=== PATIENT | female | born 1975 | race Caucasian/White ===

== ENCOUNTER 2018-05-15 09:33 | Observation (INO) | payer BC, OTHER ==
[~2018-05-15] VITALS: Ht 165.1 cm; Wt 81.2 kg
--- NOTE | 2018-05-15 12:43 | EN ---
Date/Time of Note Date/Time of Note DATE: 05/15/18 TIME: 12:43 ER Progress Note Case was discussed in detail with the advanced practice provider. Patient was seen independently Diagnostic assessment reviewed. I agree with the assessment and care plan as discussed. SAMANTHA GEORGE May 15, 2018 12:43
--- NOTE | 2018-05-15 15:27 | ERD ---
ER Documentation Chief Complaint Chief Complaint abdominal pain - LMP 02/24/18 HPI 42-year-old female presenting with right-sided abdominal pain. In September 2017 patient had a hemicolectomy after an obstruction. Patient has had no problems since. Patient has developed right-sided abdominal pain with distention times 2 days. Patient is currently 11 weeks with twins. Patient states her last bowel movement was 2 days ago and she is passing gas however no bowel movement. Patient states the pain is worse when she is laying on the right side and is alleviated when she is laying on her left side. She describes as bad cr amping type pain. She denies any vomiting but feels nauseous. Patient is unsure if the nausea is due to the . LNMP February 25. A1. Being followed by Dr. Simon. Denies medical problems. NKDA. Surgical history is tummy tack, breast reduction and hemicolectomy. Social history denies ROS All systems reviewed and are negative except as per history of present illness. Medications Home Meds No Active Prescriptions or Reported Meds Allergies Allergies: Coded Allergies: No Known Allergy (Unverified , 08/22/12) PMhx/Soc History of Surgery: Yes (TUMMY TUCK 2012, BREAST REDUCTION,right hemicolectomy- 09/2017) Anesthesia Reaction: No Hx Neurological Disorder: No Hx Respiratory Disorders: No Hx Cardiac Disorders: No Hx Psychiatric Problems: No Hx Miscellaneous Medical Probl: No Hx Alcohol Use: Yes (OCCASSIONALLY) Hx Substance Use: No Hx Tobacco Use: No Smoking Status: Never smoker FmHx Family History: No diabetes, No coronary disease, No other Physical Exam Vitals Vital Signs Date Temp Pulse Resp B/P (MAP) Pulse Ox O2 O2 Flow FiO2 Time Delivery Rate 05/15/18 97.6 99 19 117/77 98 09:43 (90) Physical Exam GENERAL: The patient is well-appearing, well-nourished, in no acute distress HEENT: Atraumatic. Conjunctivae are pink. Pupils equal, round, and reactive to light. There is no scleral icterus. Tympanic membranes clear bilaterally. Oropharynx clear. No nystagmus or photophobia. CHEST: Clear to auscultation bilaterally. There are no rales, wheezes or rhonchi. HEART: Regular rate and rhythm. No murmurs, clicks, rubs or gallops. No S3 or S4. ABDOMEN: Normal active bowel sounds. Patient has distention and tenderness to palpation over the right abdomen. No rebound tenderness. Result Diagram: 05/15/18 1025 05/15/18 1025 Results 24 hrs Laboratory Tests Test 05/15/18 10:25 05/15/18 11:02 White Blood Count 7.3 10^3/ul Red Blood Count 4.59 10^6/ul Hemoglobin 13.3 g/dl Hematocrit 39.3 % Mean Corpuscular Volume 85.6 fl Mean Corpuscular Hemoglobin 29.0 pg Mean Corpuscular Hemoglobin Concent 33.8 g/dl Red Cell Distribution Width 13.2 % Platelet Count 312 10^3/UL Mean Platelet Volume 9.7 fl Immature Granulocytes % 0.800 % Neutrophils % 72.2 % Lymphocytes % 19.0 % Monocytes % 6.9 % Eosinophils % 0.7 % Basophils % 0.4 % Nucleated Red Blood Cells % 0.0 /100WBC Immature Granulocytes # 0.060 10^3/ul Neutrophils # 5.2 10^3/ul Lymphocytes # 1.4 10^3/ul Monocytes # 0.5 10^3/ul Eosinophils # 0.1 10^3/ul Basophils # 0.0 10^3/ul Nucleated Red Blood Cells # 0.0 10^3/ul Urine Color STUART Urine Clarity SLIGHTLY CLOUDY Urine pH 5.0 Urine Specific [place] 1.032 Urine Ketones NEGATIVE mg/dL Urine Nitrite NEGATIVE mg/dL Urine Bilirubin 1+ mg/dL Urine Urobilinogen 2+ mg/dL Urine Leukocyte Esterase NEGATIVE Venkatesh/ul Urine Microscopic RBC 0 /HPF Urine Microscopic WBC 1 /HPF Urine Squamous Epithelial Cells MODERATE /HPF Urine Bacteria FEW /HPF Urine Mucus MODERATE /HPF Urine Hemoglobin NEGATIVE mg/dL Urine Glucose NEGATIVE mg/dL Urine Total Protein 1+ mg/dl Sodium Level 141 mmol/L Potassium Level 4.7 mmol/L Chloride Level 100 mmol/L Carbon Dioxide Level 28 mmol/L Anion Gap 13 Blood Urea Nitrogen 7 mg/dl Creatinine 0.51 mg/dl Est Glomerular Filtrat Rate mL/min > 60 mL/min Glucose Level 88 mg/dl Calcium Level 10.0 mg/dl Total Bilirubin 0.8 mg/dl Direct Bilirubin 0.00 mg/dl Indirect Bilirubin 0.8 mg/dl Aspartate Amino Transf (AST/SGOT) 43 IU/L Alanine Aminotransferase (ALT/SGPT) 95 IU/L Alkaline Phosphatase 122 IU/L Total Protein 7.5 g/dl Albumin 4.2 g/dl Globulin 3.30 g/dl Albumin/Globulin Ratio 1.27 Lipase 48 U/L Beta HCG, Quantitative 535816.0 mIU/ml Procedures/MDM DIAGNOSTIC IMAGING REPORT Patient: ANJALI MINOR : 1975 Age: 42 Sex: F MR #: [id number] DOS: 05/15/18 1032 Ordering MD: MOLLY LYNN PA-C Location: [facility] Room/Bed: PROCEDURE: US OB. CLINICAL INDICATION: Abdominal pain TECHNIQUE: Transabdominal views of the pelvis are available for review. COMPARISON: No prior studies are available for comparison. FINDINGS: There is a twin intrauterine gestation. Twin A Bloxom-rump length measuring 5.2 cm, corresponding to a gestational age of 11 weeks and 6 days. The heart rate is noted at 176 bpm. Twin B Bloxom-rump length measuring 4.8 cm, corresponding to a gestational age of 11 weeks and 4 days. The heart rate is noted at 191 bpm. The ovaries are not visualized. There is no free fluid. The cervix measures 3 cm in length. RPTAT: AA IMPRESSION: Twin live intrauterine with an estimated gestational age of 11 weeks and 4-6 days, based on ultrasound measurements. Ovaries not visualized. DIAGNOSTIC IMAGING REPORT Patient: ANJALI MINOR : 1975 Age: 42 Sex: F MR #: [id number] DOS: 05/15/18 1012 Ordering MD: MOLLY LYNN PA-C Location: [facility] Room/Bed: AMENDMENT: 05/15/2018 2:38:05 PM Tom Welch M.d Limited evaluation of the appendix on abdominal MRI. Appendix is not visualized. No evidence of inflammatory fluid or stranding in the right lower quadrant abdomen. PROCEDURE: MR Abdomen without contrast CLINICAL INDICATION: Abdominal pain. History of colon obstruction and prior surgery. , 11 weeks. TECHNIQUE: MRI abdomen without contrast was performed on a high-resolution high field scanner, with axial and coronal T2-weighted sequences, axial in and out of phase T1 weighted sequences, and axial lava T1-weighted sequence.. COMPARISON: US PELVIS 05/15/2018; CR ABDOMEN 05/03/2016; RF CR ABDOMEN 01/09/2014; CT 08/22/2012 FINDINGS: Lower thorax: Limited imaging of the lung bases demonstrates no suspicious pleural or parenchymal disease. Liver: Normal. Biliary: Gallbladder is distended. No gallbladder wall thickening. No gallstones are seen. No intrahepatic or extrahepatic biliary dilatation. Pancreas: Normal. Pancreatic duct, as visualized, is unremarkable. Spleen: Normal. Adrenal Glands: Normal. Urinary: Bilateral kidneys are unremarkable. Gastrointestinal: Stomach is grossly unremarkable. Mild prominence of the jejunum in the left abdomen is noted. There is a large amount of stool throughout the ascending and transverse colon . Lymph nodes: No enlarged abdominal lymph nodes identified. Vascular: No evidence of abdominal aortic aneurysm. Peritoneum/mesentery: No visualized free fluid. Musculoskeletal: No suspicious osseous abnormalities. Other: Partially visualized gravid uterus with twin . IMPRESSION: 1. Evaluation of bowel is limited by motion artifact and incomplete imaging of the pelvis. Distension with large amount of stool seen in the ascending and transverse colon suggestive of constipation or ileus. Colonic obstruction is not totally excluded but is less likely. 2. Short segment of mildly distended jejunal small bowel, may reflect ileus. 3. Twin partially visualized and not well evaluated. ER Course: This case was evaluated by Dr. Caldera as well as Dr. Cedeno. Even there is no clear indication if there is a current obstruction however patient does have distention patient will be admitted for observation. Patient is stable at the time of admission. I have low suspicion for sepsis. I have low suspicion for other acute abdominal emergency however patient will be monitored closely during admission. MDM: 42-year-old female presenting with abdominal distention and tenderness. Patient has a history of obstruction and will be admitted for observation due to risk of possible re-obstruction. I have low suspicion for complications secondary to . Patient is stable at the time of admission and will be admitted with the assistance of Dr. Cedeno. JOHN LYNN PA-C May 15, 2018 15:27
[2018-05-15] MEDS ORDERED: BISACODYL 10 MG SUPP PR ONE (17:30)
[2018-05-15] MEDS ORDERED: SOD CHLORIDE 0.9% 1,000 ML IV ONE (17:30)
[2018-05-15] MEDS ORDERED: MINERAL OIL 133 ML ENEMA PR ONE (17:30)
--- NOTE | 2018-05-15 17:50 | EN ---
Date/Time of Note Date/Time of Note DATE: 05/15/18 TIME: 17:39 ER Progress Note The patient was initially seen by the PA, discussed the patient with me. I did see the patient and examined the patient myself.. She has had intermittent right-sided abdominal pain for the last couple days, with constipation, denies fever, chills, neck pain, chest pain, vomiting, dysuria. She did have right hemicolectomy in September 2017 due to ?obstruction. Const: No acute distress. Head: Atraumatic. Eyes: Normal Conjunctiva. ENT: Normal External Ears, Nose and Mouth. Neck: Full range of motion. No meningismus. Resp: Clear to auscultation bilaterally. Cardio: Regular rate and rhythm. Abd: Soft, non distended, normal bowel sounds, gravid, vague right- sided abdominal tenderness, no rigidity, rebound, CVA tenderness Skin: No petechiae or rashes. Back: No midline or flank tenderness. Ext: No cyanosis, or edema. Neur: Awake and alert. No focal deficit Psych: Normal Mood and Affect. Ultrasound/abdominal MRI/labs work will review Consultation: I discussed the patient with the on-call surgeon at 5:20 pm, who was made aware of the lab, the treatment, the patient condition. He accepted the consult. I discussed the patient with the on-call burning machine operator Dr Doran at 5:30 pm, who was made aware of the lab, the treatment, the patient condition. She accepted the consult. MEDICAL MAKING DECISION: The patient is a 42-year-old female, presenting with acute onset abdominal pain of unclear etiology, probable due to constipation. She was treated with 1 L normal saline for dehydration, Dulcolax suppository and Fleet enema with good response. The differential diagnoses considered include but are not limited to constipation, adhesion, cholelithiasis, cholecystitis, choledocholithiasis, cholangitis, pancreatitis, hepatitis, gastritis, peptic ulcer disease, gastric ulcer, appendicitis, cystitis, diverticulitis, partial small bowel obstruction. Diagnostic impression: #1. Acute abdominal pain #2 Acute constipation I discussed the findings with the patient. I discussed the patient with the hospitalist Dr Beckham at 5:35 pm. who was made aware of the lab, the treatment, the patient condition. The patient is admitted to [facility] Disclaimer: Inadvertent spelling and grammatical errors are likely due to EHR/dictation software use and do not reflect on the overall quality of patient care. Also, please note that the electronic time recorded on this note does not necessarily reflect the actual time of the patient encounter. KIRSTY LEYVA MD May 15, 2018 17:50
[2018-05-15] MEDS ORDERED: ACETAMINOPHEN 325 MG TAB PO ONE (20:00)
[2018-05-15 23:53] VITALS: BP 96/56; PULSE 79; RESP 18
[2018-05-16] VITALS: BP 96/56; PULSE 70; RESP 18
[2018-05-16 00:03] VITALS: Ht 165.1 cm; Wt 81.2 kg
--- NOTE | 2018-05-16 00:05 | HP ---
Date/Time of Note Date/Time of Note DATE: 05/16/18 TIME: 00:05 Assessment/Plan VTE Prophylaxis SCD applied (from Nsg): Yes Pharmacological prophylaxis: NA/contraindicated Pharm contraindication: other (Patient was possible appendicitis and awaiting possible surgery) Lines/Catheters IV Catheter Type (from Nrsg): Saline Lock Assessment/Plan Assessment/Plan 42-year-old female who is 11 weeks with a history of hemicolectomy in [facility] in September of last year with right lower quadrant abdominal pain of 3 days duration, worrisome for appendicitis PLAN Patient's pain is localized exactly where her appendix is and she is tender. MRI of the abdomen shows distension with large amount of stool seen in the ascending and transverse colon, but no mentioning of appendicitis. Patient without nausea/vomiting and as she had bowel movements with a suppository after she came here, therefore bowel obstruction very unlikely. -keep n.p.o. with IV fluid -Awaiting surgical eval -Pain management -Bowel regimen for constipation Result Diagram: 05/15/18 1025 05/15/18 1025 Results 24hrs Laboratory Tests Test 05/15/18 10:25 05/15/18 11:02 White Blood Count 7.3 Red Blood Count 4.59 Hemoglobin 13.3 Hematocrit 39.3 Mean Corpuscular Volume 85.6 Mean Corpuscular Hemoglobin 29.0 Mean Corpuscular Hemoglobin Concent 33.8 Red Cell Distribution Width 13.2 Platelet Count 312 Mean Platelet Volume 9.7 Immature Granulocytes % 0.800 H Neutrophils % 72.2 Lymphocytes % 19.0 Monocytes % 6.9 Eosinophils % 0.7 Basophils % 0.4 Nucleated Red Blood Cells % 0.0 Immature Granulocytes # 0.060 H Neutrophils # 5.2 Lymphocytes # 1.4 Monocytes # 0.5 Eosinophils # 0.1 Basophils # 0.0 Nucleated Red Blood Cells # 0.0 Urine Color STUART Urine Clarity SLIGHTLY CLOUDY A Urine pH 5.0 Urine Specific [place] 1.032 H Urine Ketones NEGATIVE Urine Nitrite NEGATIVE Urine Bilirubin 1+ H Urine Urobilinogen 2+ H Urine Leukocyte Esterase NEGATIVE Urine Microscopic RBC 0 Urine Microscopic WBC 1 Urine Squamous Epithelial Cells MODERATE Urine Bacteria FEW A Urine Mucus MODERATE Urine Hemoglobin NEGATIVE Urine Glucose NEGATIVE Urine Total Protein 1+ H Sodium Level 141 Potassium Level 4.7 Chloride Level 100 Carbon Dioxide Level 28 Anion Gap 13 Blood Urea Nitrogen 7 Creatinine 0.51 Est Glomerular Filtrat Rate mL/min > 60 Glucose Level 88 Calcium Level 10.0 Total Bilirubin 0.8 Direct Bilirubin 0.00 Indirect Bilirubin 0.8 Aspartate Amino Transf (AST/SGOT) 43 Alanine Aminotransferase (ALT/SGPT) 95 H Alkaline Phosphatase 122 H Total Protein 7.5 Albumin 4.2 Globulin 3.30 H Albumin/Globulin Ratio 1.27 Lipase 48 Beta HCG, Quantitative 134832.0 HPI/ROS Admit Date/Time Admit Date/Time May 15, 2018 at 17:38 Hx of Present Illness This is a 42-year-old female who is 11 weeks with a history of hemicolectomy in [facility] in September of last year who presents the ER complaining of abdominal pain. Pain is been going on for the past 3 days. Abdominal pain is located in the right lower quadrant. She reported constipation, but had some bowel movement with suppository after she came here. She also reported she was having dry cough about 10 days ago. Flu was checked by her PCP and it was negative. She said she finished a one-week course of ampicillin 2 days ago. As far as her colon surgery is concerned, she said it was done because "my colon was twisted around my stomach". When patient presented to ER, vitals were stable. CBC and CMP within acceptable range. MRI of the abdomen shows the followin. Evaluation of bowel is limited by motion artifact and incomplete imaging of the pelvis. Distension with large amount of stool seen in the ascending and transverse colon suggestive of constipation or ileus. Colonic obstruction is not totally excluded but is less likely. 2. Short segment of mildly distended jejunal small bowel, may reflect ileus. 3. Twin partially visualized and not well evaluated. Obstetric ultrasound shows the following: Twin live intrauterine with an estimated gestational age of 11 weeks and 4-6 days, based on ultrasound measurements. Ovaries not visualized. PMH/Family/Social Past Medical History Medical History: other (See HPI) Coded Allergies: No Known Allergy (Unverified , 05/15/18) Past Surgical History Past Surgical Hx: other (See HPI) Family History Significant Family History: no pertinent family hx Social History Alcohol Use: none Smoking Status: Never smoker Drug Use: none Exam/Review of Systems Vital Signs Vitals Vital Signs Date Temp Pulse Resp B/P (MAP) Pulse Ox O2 O2 Flow FiO2 Time Delivery Rate 05/15/18 98.3 79 18 96/56 (69) 98 23:53 05/15/18 Room Air 22:46 Exam Constitutional: alert, oriented, well developed Head: normocephalic, atraumatic Eyes: EOMI, PERRL Respiratory: clear to auscultation, normal air movement Cardiovascular: regular rate and rhythm, nl pulses Gastrointestinal: other (Gravid abdomen. Tender to palpation in the right lower quadrant area with some guarding. Old well-healed surgical scar) MELISSA ELIZALDE MD May 16, 2018 00:05
[2018-05-16] MEDS ORDERED: NACL 0.9% 3 ML SYG IV SCH (00:30)
[2018-05-16] MEDS ORDERED: ONDANSETRON 4 MG INJ IV PRN (00:30)
[2018-05-16] MEDS ORDERED: SOD CHLORIDE 0.9% 1,000 ML IV ONE (00:30)
[2018-05-16] MEDS: DEXTROSE 5%-0.45% NACL 1,000 ML IV SCH ×3 (01:33→18:12)
[2018-05-16] MEDS ORDERED: morphine SULFATE/PF (2 MG/2 ML) SYG IV PRN ×2 (06:30)
[2018-05-16 07:33] VITALS: BP 92/52; PULSE 72; RESP 16
[2018-05-16] MEDS ORDERED: metroNIDAZOLE 500 MG/NS (PMX) 100 ML IVPB SCH (12:00)
[2018-05-16] MEDS: POLYETHYLENE GLYCOL 17 GM PACKET PO SCH (12:50)
[2018-05-16] MEDS: DOCUSATE SODIUM 250 MG CAP PO SCH (12:50)
[2018-05-16] MEDS: metroNIDAZOLE 500 MG/NS (PMX) 100 ML IVPB SCH ×2 (12:50→22:38)
--- NOTE | 2018-05-16 15:03 | HP ---
Date/Time of Note Date/Time of Note DATE: 05/16/18 TIME: 15:03 Assessment/Plan VTE Prophylaxis Risk score (from Ns)>0 risk: 3 SCD applied (from Ns): Yes Pharmacological prophylaxis: NA/contraindicated, other Pharm contraindication: low risk/ambulating VTE Confirmed-Overlap Tx Rcvd Pt Rcvd Overlap Therapy: No Lines/Catheters IV Catheter Type (from [facility]): Peripheral IV Central line still needed: No Urinary Cath still in place: No Assessment/Plan Hospital Course see below Assessment/Plan Hospital day #2 Twin gestation at 11 weeks Currently no obstetrical issues Admitted for right lower abdominal pain, unclear etiology. History of hemicolectomy Surgical pictures reviewed. Likely consistent with prior volvulus per patient history and photos No elevated white blood cell. However due to location of the abdominal pain, recommend consultation with surgery rule out appendicitis, as MRI was inconclusive If surgeon has high suspicious for appendicitis, maternal benefits of proceeding with CT scan to rule out appendicitis, outweighs any potential risk Recommend surgical consultation. If surgeon comfortable with r/o with clincial picture, that would be preferable if no high suspicious for appendicitis. Currently appears patient's problem to be GI. heart tones daily Please reconsult if any question Result Diagram: 05/16/18 0559 05/16/18 0559 Results 24hrs Laboratory Tests Test 05/16/18 05:59 White Blood Count 6.3 Red Blood Count 3.94 L Hemoglobin 11.4 L Hematocrit 34.0 L Mean Corpuscular Volume 86.3 Mean Corpuscular Hemoglobin 28.9 L Mean Corpuscular Hemoglobin Concent 33.5 Red Cell Distribution Width 13.4 Platelet Count 251 Mean Platelet Volume 9.7 Immature Granulocytes % 0.600 H Neutrophils % 67.9 Lymphocytes % 23.5 Monocytes % 7.1 Eosinophils % 0.6 Basophils % 0.3 Nucleated Red Blood Cells % 0.0 Immature Granulocytes # 0.040 H Neutrophils # 4.3 Lymphocytes # 1.5 Monocytes # 0.5 Eosinophils # 0.0 Basophils # 0.0 Nucleated Red Blood Cells # 0.0 Sodium Level 137 Potassium Level 4.4 Chloride Level 104 Carbon Dioxide Level 25 Anion Gap 8 Blood Urea Nitrogen 6 L Creatinine 0.51 Est Glomerular Filtrat Rate mL/min > 60 Glucose Level 89 Calcium Level 9.6 Magnesium Level 2.0 Total Bilirubin 0.7 Direct Bilirubin 0.00 Indirect Bilirubin 0.7 Aspartate Amino Transf (AST/SGOT) 35 Alanine Aminotransferase (ALT/SGPT) 61 Alkaline Phosphatase 112 Total Protein 6.8 Albumin 3.6 Globulin 3.20 Albumin/Globulin Ratio 1.12 HPI/ROS Admit Date/Time Admit Date/Time May 15, 2018 at 17:38 Hx of Present Illness 42-year-old with at 11 weeks twin gestation presented and admitted to the hospital for evaluation of right lower abdominal pain started since 5 days ago. Patient denies any fever or chills. Reports had constipation for the past 3 days. She reports a history of right hemicolectomy in September 2017 in [facility] due to possible volvulus. Patient has her surgical pictures reviewed, patient also reports she has some nausea and currently taking antiemetic medication and could be able to tolerate clear liquid diet. She has been admitted to medicine service for evaluation of right lower abdominal pain. 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 She had a ultrasound that showed twin gestation with cardiac activity with no other concern or abnormality. She denies any leaking of fluid, vaginal bleeding decreased movement. Patient denies any prior history of appendectomy. Had a MRI of the abdomen that apparently was inconclusive for appendicitis. Patient reports after she was admitted in the hospital was given medication for constipation and since then she has watery frequent bowel movements. Has been able to pass flatus. ROS see below Subjective hx not possible: other Constitutional: poor po; No no complaints, No improved, No chills, No diaphoresis, No disoriented, No fatigue, No febrile, No nausea, No weight change, No other Eyes: No no complaints, No pain, No discharge, No redness, No visual change, No other ENT: no complaints; No bleeding, No pain, No congestion, No discharge, No dysphagia, No sore throat, No other Respiratory: no complaints Cardiovascular: no complaints; No chest pain, No edema, No lightheadedness, No orthopenea, No palpitations, No paroxysmal nocturnal dyspnea, No other Gastrointestinal: pain, constipation, decreased appetite, diarrhea, nausea, vomiting; No no complaints, No blood, No flatus, No passing stool, No other Genitourinary: no complaints Musculoskeletal: no complaints Skin: no complaints Neurologic: no complaints Endocrine: no complaints Lymphatic: no complaints Psychological: no complaints Immunologic: no complaints Additional Comments N/A PMH/Family/Social Past Medical History Past medical history\\denies any medical problems in the past Past surgical history: 1. History of right hemicolectomy 2. Breast augmentation and tummy tuck in 2004 Social history: Was a passive smoke care that stopped. Drinks alcohol socially but stopped for . Denies using any drugs. 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 Stated NINO: December 01, 2018 Medical History: other (See HPI) Medications Current Medications Dextrose/Sodium Chloride 1,000 ml @ 100 mls/hr Q10H IV Last administered on 05/16/18at 01:33; Admin Dose 100 MLS/HR; Start 05/16/18 at 00:08 IV Flush (NS 3 ml) 3 ml PER PROTOCOL IV ; Start 05/16/18 at 00:30 Ondansetron HCl (Zofran Inj) 4 mg Q6H PRN IV NAUSEA AND/OR VOMITING Last administered on 05/16/18at 09:23; Admin Dose 4 MG; Start 05/16/18 at 00:30 Acetaminophen (Tylenol Tab) 650 mg Q6H PRN PO PAIN LEVEL 1-3 OR FEVER; Start 05/16/18 at 00:30 Morphine Sulfate (morphine SULFATE (PF)) 2 mg ONCE PRN IV PAIN Last administered on 05/16/18at 00:29; Admin Dose 2 MG; Start 05/16/18 at 00:00 Morphine Sulfate (morphine SULFATE (PF)) 2 mg ONCE PRN IV PAIN LEVEL 6-10 Last administered on 05/16/18at 09:19; Admin Dose 2 MG; Start 05/16/18 at 06:30 Polyethylene Glycol (Miralax) 17 gm DAILY PO Last administered on 05/16/18at 12:50; Admin Dose 17 GM; Start 05/16/18 at 12:00 Docusate Sodium (Colace) 250 mg DAILY PO Last administered on 05/16/18at 12:50; Admin Dose 250 MG; Start 05/16/18 at 12:00 Metronidazole 100 ml @ 100 mls/hr Q8 IVPB Last administered on 05/16/18at 12:50; Admin Dose 100 MLS/HR; Start 05/16/18 at 12:10 Coded Allergies: No Known Allergy (Unverified , 05/15/18) Past Surgical History 1. History of right hemicolectomy 2. Breast augmentation and tummy tuck in 2003 Past Surgical Hx: other (See HPI) Family History Significant Family History: no pertinent family hx Social History see below Alcohol Use: none Smoking Status: Never smoker Drug Use: none Exam/Review of Systems Vital Signs Vitals Vital Signs Date Temp Pulse Resp B/P (MAP) Pulse Ox O2 O2 Flow FiO2 Time Delivery Rate 05/16/18 97.9 72 16 92/52 (65) 100 Room Air 07:33 Intake and Output 05/15/18 05/15/18 05/16/18 1515:00 23:00 07:00 IntakeIntake Total 1000 ml BalanceBalance 1000 ml Exam Exam see below Constitutional: alert, oriented, well developed Psych: no complaints Head: normocephalic Eyes: nl conjunctiva ENMT: nl external ears & nose Neck: supple Respiratory: clear to auscultation Cardiovascular: regular rate and rhythm Gastrointestinal: soft, tender (Tenderness in the right mid abdomen around the right side of the umbilicus, abdomen is somewhat distended. No ascites. Tympanic. High-pitched bowel sounds audible. No rebound tenderness, no guarding, no rigidity, vertical scar from symphysis pubis to xiphoid process related to prior laparotomy surgery noted) Genitourinary - Female: other (Pelvic exam deferred. Patient asymptomatic) Musculoskeletal: nl extremities to inspection Extremities: normal pulses Additional Comments PROCEDURE: US OB. CLINICAL INDICATION: Abdominal pain TECHNIQUE: Transabdominal views of the pelvis are available for review. COMPARISON: No prior studies are available for comparison. FINDINGS: There is a twin intrauterine gestation. Twin A Markham-rump length measuring 5.2 cm, corresponding to a gestational age of 11 weeks and 6 days. The heart rate is noted at 176 bpm. Twin B Markham-rump length measuring 4.8 cm, corresponding to a gestational age of 11 weeks and 4 days. The heart rate is noted at 191 bpm. The ovaries are not visualized. There is no free fluid. The cervix measures 3 cm in length. RPTAT: AA IMPRESSION: Twin live intrauterine with an estimated gestational age of 11 weeks and 4-6 days, based on ultrasound measurements. Ovaries not visualized. AMENDMENT: 05/15/2018 2:38:05 PM Tom Welch M.d Limited evaluation of the appendix on abdominal MRI. Appendix is not visualized. No evidence of inflammatory fluid or stranding in the right lower quadrant abdomen. PROCEDURE: MR Abdomen without contrast CLINICAL INDICATION: Abdominal pain. History of colon obstruction and prior surgery. , 11 weeks. TECHNIQUE: MRI abdomen without contrast was performed on a high-resolution high field scanner, with axial and coronal T2-weighted sequences, axial in and out of phase T1 weighted sequences, and axial lava T1-weighted sequence.. COMPARISON: US PELVIS 05/15/2018; CR ABDOMEN 05/03/2016; RF CR ABDOMEN 01/09/2014; CT 08/22/2012 FINDINGS: Lower thorax: Limited imaging of the lung bases demonstrates no suspicious pleural or parenchymal disease. Liver: Normal. Biliary: Gallbladder is distended. No gallbladder wall thickening. No gallstones are seen. No intrahepatic or extrahepatic biliary dilatation. Pancreas: Normal. Pancreatic duct, as visualized, is unremarkable. Spleen: Normal. Adrenal Glands: Normal. Urinary: Bilateral kidneys are unremarkable. Gastrointestinal: Stomach is grossly unremarkable. Mild prominence of the jejunum in the left abdomen is noted. There is a large amount of stool throughout the ascending and transverse colon . Lymph nodes: No enlarged abdominal lymph nodes identified. Vascular: No evidence of abdominal aortic aneurysm. Peritoneum/mesentery: No visualized free fluid. Musculoskeletal: No suspicious osseous abnormalities. Other: Partially visualized gravid uterus with twin . IMPRESSION: 1. Evaluation of bowel is limited by motion artifact and incomplete imaging of the pelvis. Distension with large amount of stool seen in the ascending and transverse colon suggestive of constipation or ileus. Colonic obstruction is not totally excluded but is less likely. 2. Short segment of mildly distended jejunal small bowel, may reflect ileus. 3. Twin partially visualized and not well evaluated. RPTAT: AATT Tom Welch, Physician Date Time Electronically viewed and signed by Tom Welch, Physician on 05/15/2018 14:38 HtN/ CC: JOHN LYNN PA-C [id number] KOJO FLYNN MD May 16, 2018 15:03
[2018-05-16 15:45] VITALS: BP 164/72; PULSE 77; RESP 19
--- NOTE | 2018-05-16 15:54 | PN ---
Date/Time of Note Date/Time of Note DATE: 05/16/18 TIME: 15:51 Assessment/Plan VTE Prophylaxis Risk score (from Ns)>0 risk: 3 SCD applied (from Nsg): Yes Pharmacological prophylaxis: NA/contraindicated Pharm contraindication: low risk/ambulating Lines/Catheters IV Catheter Type (from Nrsg): Peripheral IV Assessment/Plan Assessment/Plan 42-year-old female who is 11 weeks with a history of [facility] of last year with right lower quadrant abdominal pain of 3 days duration, 1. R sided Colonic and small bowel ileus -recurrent -likely 2/2 combination of previous surgery and twin -cannot do SBFT 2/2 -states she's had similar recently and was treated with SBFT, before she found out she was -spoke with surgery, as patient is having BMs, continue IVF, add miralax and colace, consider reglan -continue supportive care -clear liquid diet for now, pain control -no evidence of appendicitis on MRI -will add flagyl for possible colitis 2. possible UTI 3. IUP at 11 weeks 4. Anemia in dispo: continue care, surgery reviiew and recs, await clinical improvement Result Diagram: 05/16/18 0559 05/16/18 0559 Results 24hrs Laboratory Tests Test 05/16/18 05:59 White Blood Count 6.3 Red Blood Count 3.94 L Hemoglobin 11.4 L Hematocrit 34.0 L Mean Corpuscular Volume 86.3 Mean Corpuscular Hemoglobin 28.9 L Mean Corpuscular Hemoglobin Concent 33.5 Red Cell Distribution Width 13.4 Platelet Count 251 Mean Platelet Volume 9.7 Immature Granulocytes % 0.600 H Neutrophils % 67.9 Lymphocytes % 23.5 Monocytes % 7.1 Eosinophils % 0.6 Basophils % 0.3 Nucleated Red Blood Cells % 0.0 Immature Granulocytes # 0.040 H Neutrophils # 4.3 Lymphocytes # 1.5 Monocytes # 0.5 Eosinophils # 0.0 Basophils # 0.0 Nucleated Red Blood Cells # 0.0 Sodium Level 137 Potassium Level 4.4 Chloride Level 104 Carbon Dioxide Level 25 Anion Gap 8 Blood Urea Nitrogen 6 L Creatinine 0.51 Est Glomerular Filtrat Rate mL/min > 60 Glucose Level 89 Calcium Level 9.6 Magnesium Level 2.0 Total Bilirubin 0.7 Direct Bilirubin 0.00 Indirect Bilirubin 0.7 Aspartate Amino Transf (AST/SGOT) 35 Alanine Aminotransferase (ALT/SGPT) 61 Alkaline Phosphatase 112 Total Protein 6.8 Albumin 3.6 Globulin 3.20 Albumin/Globulin Ratio 1.12 Subjective 24 Hr Interval Summary Free Text/Dictation still with intermittent abd pain, has had 2 non bloody BMs since admissionn Exam/Review of Systems Vital Signs Vitals Vital Signs Date Temp Pulse Resp B/P (MAP) Pulse Ox O2 O2 Flow FiO2 Time Delivery Rate 05/16/18 97.9 72 16 92/52 (65) 100 Room Air 07:33 Intake and Output 05/15/18 05/15/18 05/16/18 1515:00 23:00 07:00 IntakeIntake Total 1000 ml BalanceBalance 1000 ml Exam Constitutional: alert, oriented Head: atraumatic, normocephalic Neck: non-tender, supple Respiratory: clear to auscultation Cardiovascular: regular rate and rhythm Gastrointestinal: S/ mild R sided abd pain, not in RLQ / ND / +BS Extremities: no edema, good radial pulses Medications Medications Current Medications Dextrose/Sodium Chloride 1,000 ml @ 100 mls/hr Q10H IV Last administered on 05/16/18at 01:33; Admin Dose 100 MLS/HR; Start 05/16/18 at 00:08 IV Flush (NS 3 ml) 3 ml PER PROTOCOL IV ; Start 05/16/18 at 00:30 Ondansetron HCl (Zofran Inj) 4 mg Q6H PRN IV NAUSEA AND/OR VOMITING Last administered on 05/16/18at 09:23; Admin Dose 4 MG; Start 05/16/18 at 00:30 Acetaminophen (Tylenol Tab) 650 mg Q6H PRN PO PAIN LEVEL 1-3 OR FEVER; Start 05/16/18 at 00:30 Morphine Sulfate (morphine SULFATE (PF)) 2 mg ONCE PRN IV PAIN Last administered on 05/16/18at 00:29; Admin Dose 2 MG; Start 05/16/18 at 00:00 Morphine Sulfate (morphine SULFATE (PF)) 2 mg ONCE PRN IV PAIN LEVEL 6-10 Last administered on 05/16/18at 09:19; Admin Dose 2 MG; Start 05/16/18 at 06:30 Polyethylene Glycol (Miralax) 17 gm DAILY PO Last administered on 05/16/18at 12:50; Admin Dose 17 GM; Start 05/16/18 at 12:00 Docusate Sodium (Colace) 250 mg DAILY PO Last administered on 05/16/18at 12:50; Admin Dose 250 MG; Start 05/16/18 at 12:00 Metronidazole 100 ml @ 100 mls/hr Q8 IVPB Last administered on 05/16/18at 12:50; Admin Dose 100 MLS/HR; Start 05/16/18 at 12:10 Imaging Imaging AMENDMENT: 05/15/2018 2:38:05 PM Tom Welch M.d Limited evaluation of the appendix on abdominal MRI. Appendix is not visualized. No evidence of inflammatory fluid or stranding in the right lower quadrant abdomen. PROCEDURE: MR Abdomen without contrast CLINICAL INDICATION: Abdominal pain. History of colon obstruction and prior surgery. , 11 weeks. TECHNIQUE: MRI abdomen without contrast was performed on a high-resolution high field scanner, with axial and coronal T2-weighted sequences, axial in and out of phase T1 weighted sequences, and axial lava T1-weighted sequence.. COMPARISON: US PELVIS 05/15/2018; CR ABDOMEN 05/03/2016; RF CR ABDOMEN 01/09/2014; CT 08/22/2012 FINDINGS: Lower thorax: Limited imaging of the lung bases demonstrates no suspicious pleural or parenchymal disease. Liver: Normal. Biliary: Gallbladder is distended. No gallbladder wall thickening. No gallstones are seen. No intrahepatic or extrahepatic biliary dilatation. Pancreas: Normal. Pancreatic duct, as visualized, is unremarkable. Spleen: Normal. Adrenal Glands: Normal. Urinary: Bilateral kidneys are unremarkable. Gastrointestinal: Stomach is grossly unremarkable. Mild prominence of the jejunum in the left abdomen is noted. There is a large amount of stool throughout the ascending and transverse colon . Lymph nodes: No enlarged abdominal lymph nodes identified. Vascular: No evidence of abdominal aortic aneurysm. Peritoneum/mesentery: No visualized free fluid. Musculoskeletal: No suspicious osseous abnormalities. Other: Partially visualized gravid uterus with twin . IMPRESSION: 1. Evaluation of bowel is limited by motion artifact and incomplete imaging of the pelvis. Distension with large amount of stool seen in the ascending and transverse colon suggestive of constipation or ileus. Colonic obstruction is not totally excluded but is less likely. 2. Short segment of mildly distended jejunal small bowel, may reflect ileus. 3. Twin partially visualized and not well evaluated. RPTAT: AATT Tom Welch Physician Date Time Electronically viewed and signed by Tom Welch, Physician on 05/15/2018 14:38 SHARMILA SORIANO May 16, 2018 15:54
[2018-05-16 16:04] VITALS: BP 92/54; PULSE 78; RESP 18
[2018-05-16] MEDS: PRENATAL VITAMIN PO SCH (17:51)
[2018-05-16] MEDS: ACETAMINOPHEN 325 MG TAB PO PRN (17:51)
[2018-05-16 19:33] VITALS: BP 92/54; PULSE 74; RESP 19
[2018-05-16 22:30] VITALS: BP 92/56; PULSE 63; RESP 18
[2018-05-17 02:00] VITALS: BP 100/55; PULSE 64; RESP 18
[2018-05-17] MEDS: metroNIDAZOLE 500 MG/NS (PMX) 100 ML IVPB SCH (05:55)
[2018-05-17] MEDS: DEXTROSE 5%-0.45% NACL 1,000 ML IV SCH (06:39)
[2018-05-17] MEDS: DOCUSATE SODIUM 250 MG CAP PO SCH (08:13)
[2018-05-17] MEDS: POLYETHYLENE GLYCOL 17 GM PACKET PO SCH (08:13)
[2018-05-17] MEDS: PRENATAL VITAMIN PO SCH (08:13)
[2018-05-17] MEDS: ACETAMINOPHEN 325 MG TAB PO PRN (08:13)
[2018-05-17 08:15] VITALS: BP 92/51; PULSE 69; RESP 18
--- NOTE | 2018-05-17 10:29 | DS ---
Date/Time of Note Date/Time of Note DATE: 05/17/18 TIME: 10:14 Discharge Summary Admission/Discharge Info Admit Date/Time May 15, 2018 at 17:38 Discharge Date/Time Discharge Diagnosis 42-year-old female who is 11 weeks with a history of hemicolectomy in [facility] in September of last year with right lower quadrant abdominal pain of 3 days duration, 1. R sided Colonic and small bowel ileus: resolved, patient has had multiple BMs and abd pain is resolved and she's tolerating a diet -recurrent -likely 2/2 combination of previous surgery and twin -has hx of what looks like a toxic megacolon in the past 2. Possible UTI 3. IUP at 11 weeks 4. Anemia in . Patient Condition: Stable Consults Surgery: Louie Ob: Jennifer . Hospital Course 42-year-old female who presented to the emergency room with abdominal pain and nausea. She was found to be 11 weeks and and as such could only undergo an MRI. MRI showed distended ascending and transverse colon with large amount of stool concerning for constipation or ileus. Colonic obstruction cannot be excluded but was less likely. She also had a short segment of mildly distended jejunal small bowel suggestive of ileus. As she was also diagnosed with twin that was found by ultrasound to be at 11 weeks. She was treated with stool softeners orally and IV fluids and empiric Flagyl because of her and actually she responded very well to this regimen. She has had multiple bowel movements, she is currently tolerating a diet, and she has no nausea and abdominal pain is resolved. Surgical consultation was obtained with Dr. Palma, and I spoke with him a few times, but an official note is still pending. However the patient will not likely require surgery and this was confirmed upon speaking with him and so the patient can be discharged at this time. I spoke with GI because patient has a history of a toxic megacolon that was missed for a while until she ended up having a near perforation event that warranted exploratory laparotomy. Unfortunately due to her state, no further aggressive workup can be done, and as the patient is stable at this time GI just recommends close follow-up, the patient needs to be sensitive to her symptoms and takes daily laxatives to ensure regular bowel movements and return to the ER if she continues to have abdominal pain, or nausea vomiting. This was communicated to her in detail. She is being discharged at this time . Home Meds No Active Prescriptions or Reported Meds Follow-up Plan * You have a history of what looks like a toxic megacolon, I recommend you follow-up with GI after being discharged for continued monitoring and management. * Stay on stool softeners and fiber therapy and drink lots of water. * Return to the ER at the first sign of vomiting and abdominal pain to be evaluated. * Also avoid constipation inducing agents like narcotics as much as possible. Name, Degree: Sylvain Flowers MD Specialty: Gastroenterology Comments: Office Address: [id number] [place] [address] [address] [facility] [place] [address] Office Office . Primary Care Provider Care Physician No Primary Time spent on discharge: > 30 minutes Pending Labs Laboratory Tests Test 05/17/18 04:58 White Blood Count 5.9 10^3/ul (4.8-10.8) Red Blood Count 3.58 10^6/ul (4.20-5.40) Hemoglobin 10.4 g/dl (12.0-16.0) Hematocrit 30.9 % (37.0-47.0) Mean Corpuscular Volume 86.3 fl (82.0-101.0) Mean Corpuscular Hemoglobin 29.1 pg (29.0-33.0) Mean Corpuscular Hemoglobin Concent 33.7 g/dl (32.0-37.0) Red Cell Distribution Width 13.2 % (11.5-14.5) Platelet Count 262 10^3/UL (140-415) Mean Platelet Volume 10.1 fl (7.4-10.4) Immature Granulocytes % 0.700 % (0.001-0.429) Neutrophils % 67.4 % (39.0-77.0) Lymphocytes % 23.9 % (15.0-51.0) Monocytes % 6.8 % (0.0-11.0) Eosinophils % 1.0 % (0.0-7.0) Basophils % 0.2 % (0.0-2.0) Nucleated Red Blood Cells % 0.0 /100WBC (0.0-0.0) Immature Granulocytes # 0.040 10^3/ul (0.0-0.031) Neutrophils # 4.0 10^3/ul (1.6-7.5) Lymphocytes # 1.4 10^3/ul (0.8-2.9) Monocytes # 0.4 10^3/ul (0.3-0.9) Eosinophils # 0.1 10^3/ul (0.0-0.5) Basophils # 0.0 10^3/ul (0.0-0.1) Nucleated Red Blood Cells # 0.0 10^3/ul (0.0-0.0) Sodium Level 135 mmol/L (135-144) Potassium Level 3.8 mmol/L (3.5-5.1) Chloride Level 105 mmol/L (97-110) Carbon Dioxide Level 22 mmol/L (21-31) Anion Gap 8 (5-13) Blood Urea Nitrogen 4 mg/dl (7-20) Creatinine 0.42 mg/dl (0.44-1.00) Est Glomerular Filtrat Rate mL/min > 60 mL/min (>60) Glucose Level 97 mg/dl (70-220) Calcium Level 9.2 mg/dl (8.4-10.2) Phosphorus Level 3.3 mg/dl (2.5-4.9) Magnesium Level 1.9 mg/dl (1.7-2.5) SHARMILA SORIANO May 17, 2018 10:24
[2018-05-17 11:15] VITALS: BP 103/65; PULSE 68
[2018-05-17] MEDS ORDERED: POLY17PO6 PO (12:20)
[2018-05-17] MEDS ORDERED: METR-121 PO (12:20)
[2018-05-17] MEDS ORDERED: DOCU250C58 PO (12:20)
--- NOTE | 2018-05-17 12:21 | PDOCDIS ---
Discharge Instructions DIAGNOSIS Discharge Diagnosis 42-year-old female who is 11 weeks with a history of hemicolectomy in [facility] in September of last year with right lower quadrant abdominal pain of 3 days duration, 1. R sided Colonic and small bowel ileus: resolved, patient has had multiple BMs and abd pain is resolved and she's tolerating a diet -recurrent -likely 2/2 combination of previous surgery and twin -has hx of what looks like a toxic megacolon in the past 2. Possible UTI 3. IUP at 11 weeks 4. Anemia in . CONDITION [id number] Patient Condition: [id number] Stable FOLLOW UP/APPOINTMENTS Follow-up Plan * You have a history of what looks like a toxic megacolon, I recommend you follow-up with GI after being discharged for continued monitoring and management. * Stay on stool softeners and fiber therapy and drink lots of water. * Return to the ER at the first sign of vomiting and abdominal pain to be evaluated. * Also avoid constipation inducing agents like narcotics as much as possible. Name, Degree: Sylvain Flowers MD Specialty: Gastroenterology Comments: Office Address: [id number] [place] [id number] Office Office . SHARMILA SORIANO May 17, 2018 12:21
[2018-05-23] MEDS ORDERED: LEVO500T10 PO (09:16)
--- NOTE | 2018-05-23 09:26 | QN ---
Documentation Comment I called and spoke with patient's to let her know about positive Klebsiella ESBL in her urine. Patient was with twins at 11 weeks at the time of discharge. I explained to her that sensitivity profile showed that the organism might be sensitive to Levaquin vs other IV abx but Levaquin was unsafe for p regnancy in utero. The patient informed me that she and her have decided that they were going to terminate the because 1 of the babies had an abnormality and they were not willing to take a risk because they had 2 other children that needed them. I explained to the patient that there was a possibility she could change her mind and at that time the Levaquin could have done damage that may be reversible. The baby patient was very emphatic that she would not be changing her mind and requested that the Levaquin was prescribed to her. I did offer for her to return to the emergency room to repeat the urine culture for possible test of cure prior to taking medication, however patient declined stating that she and her had made the decision to in the and she wanted to be treated for urinary tract infection to prevent further complication and also as she felt symptomatic as well. Based on this I proceeded to prescribe Levaquin to treat the UTIhowever upon thinking about it further I decided not to treat the patient until she actually terminated the . So I called her back and let her know and I also advised that she return to the ER first repeat the urinalysis and culture or go to her primary care doctor to get this done. I also called the pharmacy and spoke with the pharmacist and instructed them not to prescribe the medication if they ever r eceived a faxed prescription. They verbalized understanding and promised to put in the note of the patient's chart not to prescribe the medication unless the patient provided him with a negative test. SHARMILA SORIANO. May 23, 2018 09:25
== END 2018-05-17 13:07 | disposition home or self-care (01) ==
LOC: FTE 09:33 → TEL 17:38 → PP2 05-16 22:09
PROVIDERS: ADMIT Hospitalist; ATTEND Family Medicine
DX: O26.891 Other specified pregnancy related conditions, first trimester (principal); K56.7 Ileus, unspecified; O99.011 Anemia complicating pregnancy, first trimester; Z3A.11 11 weeks gestation of pregnancy; O09.511 Supervision of elderly primigravida, first trimester; O30.001 Twin pregnancy, unspecified number of placenta and unspecified number of amniotic sacs, first trimester
CPT/HCPCS: 36415; 74181; 76801; 80048; 80053; 81001; 83690; 83735; 84100; 84702; 85025; 86900; 86901; 87081; 87086; J2274; J2405; J7030; J7042; Z7500; Z7502; Z7610; 76802; 99217; G0378